=== PATIENT | female | born 1945 | race Caucasian/White ===

== ENCOUNTER 2016-11-07 05:56 | Inpatient (IN) | payer MEDICARE, OTHER ==
[2016-11-01 13:37] LABS: BASOPHILS 0.1 %; BASOPHILS ABSOLUTE 0.01 10/3/uL (0.0-0.16); EOSINOPHILS 2.1 %; EOSINOPHILS ABSOLUTE 0.15 10/3/uL (0.0-0.53); HEMATOCRIT 42.7 % (36.0-48.0); HEMOGLOBIN 14.5 g/dL (12.0-16.0); IMMATURE GRANULOCYTES 0.1 %; IMMATURE GRANULOCYTES ABSOLUTE 0.01 10/3/uL (0.0-0.11); LYMPHOCYTES 30.8 %; LYMPHOCYTES ABSOLUTE 2.19 10/3/uL (0.67-4.30); MEAN CORPUSCULAR HEMOGLOB 32.5 pg (26.0-34.0); MEAN PLATELET VOLUME 10.7 fL (9.2-13.0); MONOCYTES 4.4 %; MONOCYTES ABSOLUTE 0.31 10/3/uL (0.21-1.20); NEUTROPHILS 62.5 %; NEUTROPHILS ABSOLUTE 4.44 10/3/uL (2.02-8.40); PLATELET COUNT 268 10/3/uL (150-400); RBC DISTRIBUTION WIDTH 12.5 % (12.0-16.0); RED CELL COUNT 4.46 10/6/uL (4.0-5.6); WHITE BLOOD CELLS 7.1 10/3/uL (4.5-10.5)
[2016-11-01 13:38] LABS: MANUAL DIFF NO %; MEAN CORPUSCULAR VOLUME 95.7 fL (80-100)
[2016-11-01 14:04] LABS: A/G RATIO 1.4 (0.7-1.9); ALBUMIN 3.8 G/DL (3.5-5.0); ALKALINE PHOSPHATASE 67 U/L (45-117); BUN (BLOOD UREA NITROGEN) 18 MG/DL (6-23); CALCIUM, SERUM 8.5 MG/DL (8.5-10.4); CHLORIDE, SERUM 105 MMOL/L (96-112); CO2 (CARBON DIOXIDE) 31 MMOL/L (24-34); CREATININE 0.91 MG/DL (0.55-1.02); GFR AFRICAN AMERICAN 75 ML/MIN (>=60); GFR NON AFRICAN AMERICAN 64 ML/MIN (>=60); GLOBULIN 2.8 G/DL (2.5-4.1); GLUCOSE, SERUM 106 MG/DL (60-99); SGOT(AST) 22 U/L (5-40); SGPT(ALT) 44 U/L (5-65); SODIUM, SERUM 142 MMOL/L (135-148); TOTAL BILIRUBIN 0.8 MG/DL (0-1.2); TOTAL PROTEIN 6.6 G/DL (6.0-8.5)
[2016-11-01 14:05] LABS: POTASSIUM, SERUM 3.9 MMOL/L (3.5-5.3)
--- NOTE | ~2016-11-07 | OP ---
Record Of Operation [facility] [address] [place]. [address] NAME: HARRIS JUDGE : 49 STATUS : ADM IN [facility]#: [id number] AGE: 71 ADM/REG DATE : 11/07/16 MR#: [id number] REPORT SERV DATE: 11/07/16 DICTATED BY: FELA TAPIA III DATE: 11/07/16 REPORT STATUS : Draft TRANSCRIBED BY: MODL DATE: 11/07/16 DATE OF PROCEDURE: 11/07/2016 PREOPERATIVE DIAGNOSIS: Symptomatic incisional hernia. POSTOPERATIVE DIAGNOSIS: Symptomatic incisional hernia. PROCEDURE: Open repair of symptomatic incisional hernia with Prolene mesh. SURGEON: Fela Tapia M.D. ANESTHESIA: General with intubation. COMPLICATIONS: None. ESTIMATED BLOOD LOSS: 5 mL. SPECIMENS: None. DRAINS: Mykel-Hardin in subcutaneous tissue. LAP AND SPONGE COUNT: Correct x3. BRIEF HISTORY: This 71-year-old female presented with a symptomatic incisional hernia. This hernia is located over the right lateral abdominal wall and is related to a previous right laparoscopic colectomy. It was felt that open repair of this hernia was indicated. This procedure, the risks, benefits, alternatives, including not limited to the risk for bleeding, infection, enterotomy, injury to any abdominal structure, postop small bowel obstruction, ileus, recurrence of the hernia, seroma formation, hematoma formation, infection of mesh, or enterocutaneous fistula requiring removal of the mesh, and unforeseen complications including deep venous thrombosis, pulmonary embolus, myocardial infarction, stroke, pneumonia, and , were fully explained to the patient prior to surgery. The expected length of recovery was explained. The patient had questions, which were answered. She fully understood the risks and agreed to surgery as planned. PROCEDURE IN DETAIL: After being properly identified and after discussing risks of surgery with her again in the preoperative area, and after identifying the hernia with her in the preoperative area, the patient was taken to the operating room and placed in supine position on the operating room table. General anesthesia was administered. She was intubated without difficulty. The abdomen was prepped and draped sterilely in the usual fashion. After an appropriate "time-out" per [place]CAHO standards, a small vertical incision was made over the previous incision over the hernia over the right lateral abdominal wall. The incision was continued through the subcutaneous tissue. Hemostasis was controlled with cautery. The incision was continued down to the fascial defect. Using sharp dissection, the hernia sac was dissected from the subcutaneous tissue. The fascial defect was defined anteriorly and posteriorly. There were some adhesions between the omentum and the underside of the fascia Record Of Operation [facility] [address] [place]. [address] NAME: HARRIS JUDGE : 49 STATUS : ADM IN PAT#: [id number] AGE: 71 ADM/REG DATE : 11/07/16 MR#: [id number] REPORT SERV DATE: 11/07/16 DICTATED BY: FELA TAPIA III DATE: 11/07/16 REPORT STATUS : Draft TRANSCRIBED BY: TIFFANIE DATE: 11/07/16 posteriorly. These were carefully divided. Using sharp dissection, the skin and subcutaneous tissue around the defect anteriorly was fully mobilized for about [address], the fascial defect was defined anteriorly and posteriorly. Hemostasis was assured. We then selected a Ventralight Prolene mesh of the appropriate size. This was cut to the appropriate size for the defect. The mesh was placed beneath the defect so as to overlap the edges of the defect by 3 cm on all sides. The mesh was then secured around the edges of the defect with short segments of interrupted #1 Prolene sutures. Upon completion of this, the mesh lay nicely over the defect. The fascial edges lay posterior to the edges of the defect circumferentially for about 3 cm. Hemostasis was assured. A Mykel-Hardin drain was brought through separate stab wound and placed in the subcutaneous tissue. The subcutaneous tissue was closed with a running 3-0 chromic suture. The skin was closed with running subcuticular 4-0 Monocryl stitch. The incision was injected with 0.5% Marcaine. Dressings were applied. Anesthesia was reversed. The patient was taken to the recovery room in stable condition. She tolerated the procedure well. Her family was informed results of surgery. The patient will remain in the hospital for postoperative care. CHAVEZ/TIFFANIE Fela Tapia III, M.D. / [id number] CC: Fela Tapia III, M.D.
--- NOTE | ~2016-11-07 | HP ---
History And Physical [address] [address] NAME: HARRIS JUDGE : 49 STATUS : DIS IN PAT#: [id number] AGE: 71 ADM/REG DATE : 11/07/16 MR#: [id number] REPORT SERV DATE: 01/08/17 DICTATED BY: FELA TAPIA III DATE: 01/08/17 REPORT STATUS : Draft TRANSCRIBED BY: MODL DATE: 01/08/17 DATE OF ADMISSION: 11/07/2016 (This is the second history and physical on this patient which was initially dictated prior to surgery). HISTORY OF PRESENT ILLNESS: This 71-year-old female comes to the operating room for open repair of symptomatic incisional hernia. PAST MEDICAL HISTORY: See previous dictation. PHYSICAL EXAMINATION: Please see previously dictated history and physical. ASSESSMENT: A 71-year-old female with symptomatic incisional hernia. PLAN: The patient comes to the operating room now for open repair of this incisional hernia. This procedure, the risks, benefits, and alternatives, including but not limited to the risk for bleeding, infection, enterotomy, injury to any abdominal structure, postop small bowel obstruction, ileus, seroma formation, hematoma formation, recurrence of the hernia, infection of the mesh or enterocutaneous fistula requiring removal of the mesh, and unforeseen complications including deep venous thrombosis, pulmonary embolus, myocardial infarction, stroke, pneumonia, and , have been explained to the patient prior to surgery. The fact that this is a major operation with risk for major morbidity and mortality has been explained. The expected length of recovery has been explained. The patient's questions have been answered. She clearly understands the risks and agrees to the surgery as planned. CHAVEZ/TIFFANIE Fela Tapia III, M.D. / [id number] CC: Pooja Malhotra III, M.D.
[~2016-11-07 05:56] MED LIST: ALEVE220 MG PO; ANASPAZ0.125 MG PO; CHLORTHALID25 MG OR; CRESTOR10 PO; ENBREL25 MG SC; FOLIC PO; KLOR-CON M2020 MEQ PO; LIPITOR40 PO; LOTREL1 CA2 PO; MTX2.5 PO; NEXIUM40 PO; PROTONIX PO; SEPTRA1 TAB PO; TOPXL25 PO; VITD PO; VIVELLE SY0.025 MG/2 TOP; ZOL100 PO
[2016-11-08 06:17] LABS: HEMOGLOBIN 12.9 g/dL (12.0-16.0); MEAN CORPUS HGB CONC 33.7 g/dL (32.0-36.0); MEAN CORPUSCULAR HEMOGLOB 32.5 pg (26.0-34.0); MEAN CORPUSCULAR VOLUME 96.5 fL (80-100); MEAN PLATELET VOLUME 10.7 fL (9.2-13.0); PLATELET COUNT 226 10/3/uL (150-400); RBC DISTRIBUTION WIDTH 12.4 % (12.0-16.0); RED CELL COUNT 3.97 10/6/uL (4.0-5.6)
[2016-11-08 06:20] LABS: HEMATOCRIT 38.3 % (36.0-48.0); MANUAL DIFF YES %; WHITE BLOOD CELLS 12.6 10/3/uL (4.5-10.5)
[2016-11-08 07:18] LABS: BAND NEUTROPHILS 3 %; LYMPHOCYTES 8 %; LYMPHOCYTES ABSOLUTE (CALC) 1.01 10/3/uL (0.67-4.30); MONOCYTES 6 %; MONOCYTES ABSOLUTE (CALC) 0.76 10/3/uL (0.21-1.20); NEUTROPHILS ABSOLUTE (CALC) 10.84 10/3/uL (2.02-8.40); PLATELET ESTIMATE ADQ (ADEQUATE); RBC MORPHOLOGY NORM (NORMAL); SEGMENTED NEUTROPHIL (0) 83 %; TOTAL NUCLEATED CELLS 100
[2016-11-09 07:38] LABS: BASOPHILS 0.2 %; BASOPHILS ABSOLUTE 0.02 10/3/uL (0.0-0.16); EOSINOPHILS 2.2 %; EOSINOPHILS ABSOLUTE 0.21 10/3/uL (0.0-0.53); IMMATURE GRANULOCYTES 0.2 %; IMMATURE GRANULOCYTES ABSOLUTE 0.02 10/3/uL (0.0-0.11); LYMPHOCYTES 21.4 %; LYMPHOCYTES ABSOLUTE 2.08 10/3/uL (0.67-4.30); MEAN CORPUS HGB CONC 33.3 g/dL (32.0-36.0); MEAN CORPUSCULAR HEMOGLOB 32.5 pg (26.0-34.0); MEAN CORPUSCULAR VOLUME 97.6 fL (80-100); MEAN PLATELET VOLUME 10.6 fL (9.2-13.0); MONOCYTES 5.4 %; MONOCYTES ABSOLUTE 0.53 10/3/uL (0.21-1.20); NEUTROPHILS 70.6 %; NEUTROPHILS ABSOLUTE 6.88 10/3/uL (2.02-8.40); PLATELET COUNT 252 10/3/uL (150-400); RBC DISTRIBUTION WIDTH 12.5 % (12.0-16.0); RED CELL COUNT 4.61 10/6/uL (4.0-5.6); WHITE BLOOD CELLS 9.7 10/3/uL (4.5-10.5)
[2016-11-09 07:40] LABS: MANUAL DIFF NO %
[2016-11-09] MEDS ORDERED: PERCOCET 7.5/321 TAB PO (09:33)
== END 2016-11-09 11:40 | disposition home or self-care (01) | DRG 355 ==
LOC: SDC 05:56 → SDC/OF 10:25 → 5SO 12:16
PROVIDERS: Surgery
PROC: 0WUF0JZ Supplement Abdominal Wall with Synthetic Substitute, Open Approach (ICD-10-PCS; principal; 2016-11-07 07:45)
DX: K43.2 Incisional hernia without obstruction or gangrene (principal); I10 Essential (primary) hypertension; M06.9 Rheumatoid arthritis, unspecified; K21.9 Gastro-esophageal reflux disease without esophagitis; Z87.891 Personal history of nicotine dependence; Z88.2 Allergy status to sulfonamides; Z79.899 Other long term (current) drug therapy; Z85.038 Personal history of other malignant neoplasm of large intestine
CPT/HCPCS: 71020; 80053; 85025; 87641; 93005; A9270-GY; C1781; J0690; J1885; J2250; J2270; J2405; J2710; J3010